=== PATIENT | male | born 1995 | race Caucasian/White ===

== ENCOUNTER 2022-01-31 11:21 | Emergency (ER) | payer MEDICAID, SELFPAY ==
[2022-01-31 11:22] VITALS: BP 150/91; PULSE 99; RESP 18; TEMP 36.4; O2SAT 100; BMI 30.7
--- NOTE | 2022-01-31 14:21 | EDS_ITS ---
HPI History of Present Illness Chief Complaint: Lower Extremity Injury Narrative Narrative: Patient presents with bilateral leg pain that has had for the last few days. He relates remote history that he had a rash on his upper arm and was put on prednisone. He was taking 60 mg all at once. He began having back pain and weakness in his legs. He returned to the outside facility on Monday, 6 days ago, and was told to split the dosing to 20 mg 3 times a day. Today, he was at work when he started having pain when he moves his legs that radiates to his thighs. He denies any back pain. No fevers or chills. No loss of bowel or bladder. No saddle anesthesia. The pain radiates down to both mid thighs. Pain is exacerbated by movement. [facility] Medical History Fatty liver Allergy/AdvReac Type Severity Reaction Status Date / Time amoxicillin Allergy Hives Verified 01/31/22 11:26 azithromycin Allergy Hives Verified 01/31/22 11:26 sulfamethoxazole Allergy Hives Verified 01/31/22 11:26 [From Bactrim] trimethoprim [From Bactrim] Allergy Hives Verified 01/31/22 11:26 Social History Smoking Status: Current every day smoker tobacco type: smokeless tobacco ROS ROS ED ROS Narrative Constitutional: No fever, no chills. HEENT: No sore throat. No neck pain. No loss of vision. No rhinorrhea. Cardiovascular: No chest pain. No palpitations. No pedal edema. Respiratory: No cough, no shortness of breath. Abdominal: No abdominal pain. No nausea. No vomiting. Genitourinary: No dysuria. No hematuria. No loss of bowel or bladder. Musculoskeletal: Bilateral thigh pain/myalgias. No arthralgias. Neurologic: No headaches. No dizziness. No lightheadedness. No saddle anesthesia. Skin: No rash. No change in color. Psychiatric: No depression. No anxiety. EXAM Physical Exam Const Vital Signs: 01/31/22 11:22 01/31/22 15:35 Temperature 97.6 F L Temperature Source Temporal Pulse Rate 99 85 Respiratory Rate 18 18 Blood Pressure 150/91 H 148/88 H Blood Pressure Mean 110 108 Pulse Ox 100 97 Oxygen Delivery Method Room Air Room Air MDM MDM MDM Narrative Medical decision making narrative: Patient has been taking prednisone 60 mg daily. He may have a myositis from t his. X-rays obtained of the lumbar spine interpreted by myself show no acute fracture, no disc space narrowing. It is less likely that this may be a radiculopathy. He was bolused normal saline and was administered Flexeril and Toradol for analgesia. I checked his BMP is grossly unremarkable, there is no evidence of dehydration. At this point in time, I feel he can be discharged safely home with follow-up. He will stop taking his prednisone as it was only written for burst, and follow-up with his primary care physician. Return instructions to the emergency department were reviewed. Disposition is discharged home in stable condition. Lab Data Labs: Laboratory Results - last 24 hr 01/31/22 15:42 Sodium 141 Potassium 3.7 Chloride 106 Carbon Dioxide 30.0 Anion Gap 5 BUN 13 Creatinine 0.98 Estim Creat Clear Calc 121.66 Est GFR (MDRD) Af Amer 119 Est GFR (MDRD) Non-Af 98 BUN/Creatinine Ratio 13.3 Glucose 97 Calcium 8.6 Radiography Diagnostic Testing: Clinical Impression(s) from Imaging Studies Lumbar Spine X-Ray 01/31/22 14:30 IMPRESSION: Normal x-ray examination of the lumbar spine. Electronically Signed: Pedro Tovar MD at 14:46 EDT Reading Location ID and State: [address] [place] [address] , Service support , Discharge Plan Triage Chief Complaint: Lower Extremity Injury ED Provider: Jamie Sandoval Dx/Rx/DC Orders Clinical Impression: Bilateral thigh pain, Myositis Instructions: ED Myalgias, ED Myositis, ED Pain, Acute, Uncertain Cause Stand Alone Forms: ED Work / School Excuse Primary Care Provider: Honorio Buckner Referrals: Honorio Buckner MD [Primary Care Provider] - 3-5 Days if not improving Activity Restrictions/Additional Instructions: Stop taking your prednisone. Disposition Disposition: Home, Self Care
--- NOTE | 2022-01-31 14:30 | RAD_ITS ---
STUDY: X-RAY - LUMBAR SPINE REASON FOR EXAM: Male, 26 years old. Radicular Pain TECHNIQUE: 2 view(s) of the lumbar spine were obtained. COMPARISON: None FINDINGS: Normal lumbar lordosis. There is no substantial scoliosis. There is a normal alignment of the vertebrae. Normal vertebral bodies and endplates. Normal disc space heights. There is no demonstrated fracture or compression deformity. The soft tissue structures are unremarkable. RAD/Lumbar Spine 2 or 3 Views IMPRESSION: Normal x-ray examination of the lumbar spine. Electronically Signed: Pedro Tovar MD at 14:46 EDT ,
[2022-01-31] MEDS: 0.9% Normal Saline 1,000 ML 999 ML IV (15:34)
[2022-01-31] MEDS: cycloBENZAPRine HCl 10 MG Tablet PO (15:34)
[2022-01-31 15:35] VITALS: BP 148/88; PULSE 85; RESP 18; O2SAT 97
[2022-01-31] MEDS: Ketorolac 30 MG/ML Syringe IV (15:57)
[2022-01-31 16:09] LABS: Anion Gap 5 (5-15); BUN 13 mg/dL (7-18); BUN/Creat Ratio 13.3 RATIO (10-20); Calcium,Total 8.6 mg/dL (8.5-10.1); Chloride 106 mmol/L (98-107); Creatinine, Serum 0.98 mg/dL (0.70-1.30); EST Glomerular Filtration Rate 98 mL/min (>60); Est Glom Filt Rate - Afr Amer 119 mL/min (>60); Estimated Creatinine Clearance 121.66 ml/min; Glucose 97 mg/dL (74-106); Potassium 3.7 mmol/L (3.5-5.1); Sodium Level 141 mmol/L (136-145)
[2022-01-31 17:09] VITALS: BP 148/64; PULSE 74; RESP 16; O2SAT 99
== END 2022-01-31 17:10 | disposition home or self-care (01) ==
PROVIDERS: Emergency Provider Emergency Medicine; PCP Family Medicine; Visit Provider Emergency Medicine
DX: M79.651 Pain in right thigh (principal); M79.652 Pain in left thigh; M60.9 Myositis, unspecified; F17.290 Nicotine dependence, other tobacco product, uncomplicated
CPT/HCPCS: 72100; 80048; 96361; 96374; 99282; J7030; A4216